=== PATIENT | female | born 1965 | race Caucasian/White ===

== ENCOUNTER 2018-10-21 08:47 | Day surgery (SDC) | payer OTHER ==
[2018-10-21] MEDS ORDERED: LR 1,000 ML IV ONE (08:59)
[2018-10-21] MEDS ORDERED: ceFAZolin 2 GM/DEXTROSE 100 ML IV ONE (08:59)
--- NOTE | 2018-10-21 10:22 | PDHPUP ---
History & Physical Update H&P update statement: This history and physical update is based on an assessment of the patient which was completed after admission or registration (within 24 hours), but prior to the surgery/procedure. H&P update: H&P reviewed & patient examined, no change in patient's condition since H&P completed
[2018-10-21] MEDS ORDERED: MIDAZOLAM 2 MG/2 ML VIAL IVP ONE (10:53)
[2018-10-21] MEDS ORDERED: PROPOFOL 200 MG/20 ML VIAL ONE (10:56)
[2018-10-21] MEDS ORDERED: fentaNYL 100 MCG/2 ML INJ ONE ×2 (10:56→12:37)
[2018-10-21] MEDS ORDERED: DEXAMETHASONE 4 MG/ML VIAL ONE (10:58)
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
[2018-10-21] MEDS ORDERED: PHENYLEPHRINE HCL 100 MCG/ML SYR ONE (11:26)
[2018-10-21] MEDS ORDERED: ePHEDrine SULFATE 25 MG/5 ML SYR ONE (11:27)
[2018-10-21] MEDS ORDERED: oxyCODONE IR 5 MG TAB PO PRN (12:00)
[2018-10-21] MEDS ORDERED: NALOXONE HCL 0.4 MG/ML INJ IVP PRN (12:00)
[2018-10-21] MEDS ORDERED: PROMETHAZINE HCL 25 MG/ML INJ IVP PRN (12:00)
[2018-10-21] MEDS ORDERED: MEPERIDINE 25 MG/0.5 ML AMP IVP PRN (12:00)
[2018-10-21] MEDS ORDERED: HYDROmorphONE/DILAUDID 2 MG/ML INJ IVP PRN (12:00)
[2018-10-21] MEDS ORDERED: ONDANSETRON 4 MG/2 ML VIAL IVP PRN (12:00)
[2018-10-21] MEDS ORDERED: LR 500 ML IV PRN (12:00)
[2018-10-21] MEDS ORDERED: ALBUTEROL 3 ML DEYVIAL IH PRN (12:00)
[2018-10-21] MEDS ORDERED: METOCLOPRAMIDE 10 MG/2 ML VIAL IVP PRN (12:00)
[2018-10-21] MEDS ORDERED: ACETAMINOPHEN 500 MG TAB PO PRN (12:00)
[2018-10-21] MEDS ORDERED: DIAZEPAM 5 MG/ML 1 ML SYR IVP PRN (12:00)
[2018-10-21] MEDS ORDERED: ONDANSETRON 4 MG/2 ML VIAL ONE (12:01)
[2018-10-21] MEDS ORDERED: BUPIVACAINE 0.5% 30 ML SDV ONE (12:04)
[2018-10-21] MEDS: fentaNYL 100 MCG/2 ML INJ IVP PRN ×2 (12:40→12:59)
--- NOTE | 2018-10-21 12:45 | POSTOPPROG ---
Post Op Note Date of Operation: 10/21/18 Surgeon: Jess Ladd Machine Bobbin Winder: nenita Anesthesiologist: gloria Anesthesia: GET(General Endotracheal) Pre-op Diagnosis: sacral decub, stage IV pressure ulce greater trochanter Post-op Diagnosis: same Indication: 53 yo paraplegia, lost weight now with pressure ulcers Procedure: debride skin soft tissue bone and muscle Findings: see dictated op note for measurements Inf/Abcess present in the surg proc area at time of surgery?: Yes Depth: Deep Incisional (Fascial) EBL: Minimal Specimen(s): culture
--- NOTE | 2018-10-21 12:59 | GOP ---
[f rep st] OPERATIVE REPORT DATE OF OPERATION: 10/21/2018 SURGEON: Jess Ladd MD DIAMOND DRILLER HELPER: Angelika Mendoza, LORI ANESTHESIA: General. ANESTHESIOLOGIST: Dr. Adriana Mccauley PREOPERATIVE DIAGNOSIS: Unstageable pressure ulcer sacrum, and stage IV decubitus ulcer on her great er trochanter. POSTOPERATIVE DIAGNOSIS: Stage III pressure ulcer sacrum, stage IV pressure ulcer right greater troc hanter. PROCEDURE PERFORMED: Debridement skin, soft tissue, muscle, fascia. FINDINGS: The wound on her sacrum measured 2 x 1 x 1 cm. The wound on her right greater trochanter measures 6.5 x 8.5 x 2.5, and undermined 3 cm at the 9 o'clock position and 3 cm at the 3 o'clock pos ition. SPECIMENS: Fluid and tissue from right greater trochanter for culture. ESTIMATED BLOOD LOSS: 10 cc. INDICATIONS: The patient is a paraplegic who has developed a pressure wounds. I first met her as sh israel transferred care to our wound care facility and she had foul smelling necrotic material bursting fr om her wound over her trochanter. She also had an unstageable pressure ulcer on her sacrum. I attem pted debridement in the office, but this was not possible. DESCRIPTION OF PROCEDURE: Patient was brought into the operating room, placed supine on the table, a nd general anesthesia was administered. I had to excise the leathery devitalized tissue over the sac rum. I excised this, then used Misonix to debride down to healthy subcutaneous fat. It measured 2 x 1 x 1 cm. On the right greater trochanter, I again had to perform a combination of debridement with electrocautery, as well as with Misonix. This wound, there was copious amounts of foul smelling mat erial and necrotic material. I debrided all of the devitalized tissue and could see the fascial plan e just over the bone. I had to debride necrotic muscle as well. Hemostasis was achieved in the wounds. Local anesthetic was injected. Dressings applied. She was p laced back in the supine position, awakened, transferred to PACU in stable condition. I believe she will benefit from a wound VAC and may need a complex plastic's closure. /[id number]/MODL
--- NOTE | 2018-10-21 13:00 | PDIAF ---
- Diagnosis Diagnosis: stage 3 sacral decub, stage IV R greater trochanter Code Status: Full Code - Medication Management Discharge Medications: electronically signed and located in the Home Medication List. - Orders Services needed: Home Care, Registered Nurse Home Care Face to Face: I certify that this patient was under my care and that I had the required [id number] encounter meeting the encounter requirements on the discharge day. My findings support the fact that the patient is homebound as defined in Home Care Face to Face Continued: CMS Chapter 7 Medicare Benefits Manual 30.1.1 , The condition of the patient is such that there exists a normal inability to leave home and consequently, leaving home would require a considerable and taxing effort. Diet Recommendation: no restrictions on diet Wound Care Instructions: I faxed home care orders. Mark carmona and briana. We will place vac on Wed 10:30 Additional Instructions: Off load Will send orders to home care for dressing changes I have ordered a wound vac F/U wound clinic - Follow Up Care Current Providers and Referrals: [facility] [Clinic] - NONE *PRIMARY CARE P,. [Primary Care Provider] - 10/26/18 10:30 am
[2018-10-21] MEDS ORDERED: oxyCODONE IR 5 MG TAB ONE (13:07)
--- NOTE | 2018-10-21 13:31 | POSTANESTH ---
Post Anesthetic Evaluation Cardiovascular Status: Normal, Stable Respiratory Status: Normal, Stable Level of Consciousness/Mental Status: Can Participate in Eval Pain Control: Adequate, Prn Tx Ordered Nausea/Vomiting Control: Adequate, Prn Tx Ordered Complications Possibly Related to Anesthesia: None Noted
[2018-10-21 14:53] VITALS: BP 107/56
== END 2018-10-21 14:45 | disposition home health service (06) ==
LOC: FSGY 08:47
PROVIDERS: ATTEND Surgery
DX: L89.153 Pressure ulcer of sacral region, stage 3 (principal); L89.214 Pressure ulcer of right hip, stage 4; G82.22 Paraplegia, incomplete; T14.90XS Injury, unspecified, sequela; N31.9 Neuromuscular dysfunction of bladder, unspecified; N39.498 Other specified urinary incontinence
CPT/HCPCS: J0690; J1100; J2250; J2370; J2405; J2704; J3010

== ENCOUNTER 2018-11-11 05:25 | Inpatient (IN) | payer OTHER ==
[2018-11-11] MEDS ORDERED: ONDANSETRON 4 MG/2 ML VIAL IVP ONE (05:32)
[2018-11-11] MEDS ORDERED: NS 1,000 ML IV ONE (05:32)
[2018-11-11] MEDS ORDERED: HYDROmorphONE/DILAUDID 2 MG/ML INJ IVP ONE ×3 (05:32→09:16)
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
[2018-11-11 06:04] LABS: PLATELET COUNT 687 10^3/uL (150-400)
[2018-11-11 06:24] LABS: INR 0.97 (0.83-1.16); PROTIME(PATIENT) 12.5 SEC (12.0-15.0)
[2018-11-11] MEDS ORDERED: ONDANSETRON DISINTEGRATING 4 MG TAB PO PRN (08:27)
[2018-11-11] MEDS ORDERED: ONDANSETRON 4 MG/2 ML VIAL IVP PRN (08:27)
[2018-11-11] MEDS ORDERED: HYDROmorphONE/DILAUDID 1 MG/ML INJ ONE ×2 (09:03→09:15)
[2018-11-11] MEDS: ACETAMINOPHEN 325 MG TAB PO PRN ×2 (10:38→22:18)
[2018-11-11] MEDS: oxyCODONE IR 5 MG TAB PO PRN ×2 (12:07→18:11)
[2018-11-11] MEDS: HYDROmorphONE/DILAUDID 1 MG/ML INJ IVP PRN ×4 (12:50→20:40)
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
[2018-11-11] MEDS: GABAPENTIN 400 MG CAP PO SCH ×2 (15:34→22:18)
[2018-11-11] MEDS: KETOROLAC 30 MG/1 ML SDV IVP PRN (15:34)
[2018-11-11] MEDS: OXYBUTYNIN CHLORIDE 5 MG TAB PO SCH ×2 (15:34→22:21)
--- NOTE | 2018-11-11 16:08 | PDMN ---
Medical Necessity Medical necessity: Pt meets IP criteria per & [facility]ound [facility]; est los >2 mn for eval/tx of multiple pressure wounds (stage 3 sacral ulcer, stage 4 great trochanter ulcer & new L hip wound) w/increased pain & recent debridement w/wound vac placement, as well as dysuria & protein caloric malnutrition; urinalysis pending; admit for further monitoring, Surgery/Dietary consults & pain management; hx T12 paraplegic, neurogenic bladder; per H&P & order 11/11/18
[2018-11-11] MEDS: HYDROmorphONE/DILAUDID 1 MG/ML INJ IVP SCH (16:14)
[2018-11-11] MEDS ORDERED: LORazepam 2 MG/ML INJ IVP ONE (16:30)
--- NOTE | 2018-11-11 16:30 | SOAPPROG ---
SOAP Progress Note Assessment/Plan: Assessment/Plan: 53yo F with stg IV pressure ulcer R greater trochanter, stage IV pressure ulcer sacrum, new unstageable pressure ulcer L greater trochanter, all present on admission Continue wound vac therapy - MWF Offload pressure Wound with >90% healthy granulation tissue - does not require surgical debridement Pain - neuropathic and significant anticipatory anxiety Will continue to follow Would benefit from SNF after admission- pt has refused this in the past Will consult a full dictation note. Seen with Dr. Ladd. Objective: Vital Signs Temp Pulse Resp BP Pulse Ox 36.4 C 83 16 112/78 94 11/11/18 10:19 11/11/18 10:19 11/11/18 10:19 11/11/18 10:19 11/11/18 10:19 PT 12.5 SEC (12.0-15.0) 11/11/18 05:50 INR 0.97 (0.83-1.16) 11/11/18 05:50 ICD10 Worksheet Patient Problems: Problems Problem Status Onset Failure to thrive in adult Acute Generalized weakness Acute Acute renal failure Acute Altered mental status Acute Elevated troponin Acute Intractable vomiting with nausea Acute Nausea Acute Pyelonephritis Acute Urinary tract infection Acute
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
--- NOTE | 2018-11-11 18:16 | WOCRNPDOC ---
LISETCRAnuj Advanced Assessment Note - Skin Integrity Problem, Advanced Assess Sacrum Dressing Type: Mepilex Border Exudate Amount: None Integumentary Issue Intervention: Dressing Changed Pam Wound Tissue: Erythema (circumferential), Painful/Tender Pam Wound Swelling: Mild Wound Bed Constitution: Granulation Tissue (80%), Undermining (2-4 oclock 3cm, 6 -12 oclock 0.5cm), Adhered Slough (20%) Wound Edges: Not Attached Site Measurement - Head-to-Toe Length X Width X Depth (cm): 3x2x0.6 Pressure Injury Stage: Stage 4 Pressure Injury Present on Admit: Yes Skin Integrity Problem Comment: Pressure injury debrided in OR last week. Staging per Dr. Ladd is a stage 4. Thin layer of adhered slough present. Patient lying on left side for wound measuring. There is a seperate full thickness tiny wound along the edge of the pressure injury at 3 oclock. It is about 0.5 cm from the lip of the established larger wound. It measures 1x0.5x0.2. Cleaned wounds with ns and gauze. Packed large wound lightly with mesalt packing and covered with mepilex border sacral dressing to autolyitically debride the wound. Wound care will follow all wounds. Kyle DUENAS in room for dressing change. Left Greater Trochanter Dressing Type: Mepilex Border Dressing Description: Clean/Dry, Intact Exudate Amount: None Integumentary Issue Intervention: Dressing Changed, Dressing Initialed & Dated Wound Bed Constitution: Mixed Loose & Adhered Slough/Eschar (100%) Site Measurement - Head-to-Toe Length X Width X Depth (cm): 2.2x2x0.1 Pressure Injury Stage: Unstageable Pressure Injury Present on Admit: Yes Skin Integrity Problem Comment: Wound that is dried and has pockets of intact skin in between areas of necrosis. Cleaned with ns and gauze. Medihoney gel to wound bed and covered with mepilex border 4x4. Wound care will follow. Right Greater Trochanter Dressing Type: Wound Vac Dressing Description: Clean/Dry, Intact Exudate Amount: Scant Exudate Characteristic(s): Serosanguinous Integumentary Issue Intervention: Dressing Changed Pam Wound Tissue: Painful/Tender Wound Bed Color: Black, Red, White Wound Bed Constitution: Granulation Tissue (80%), Undermining (11-2 oclock 3.2 cm ), Bone (quarter sized area exposed in superior wound bed), Muscle, Mixed Loose & Adhered Slough/Eschar (10%) Wound Edges: Epithelizing, Not Attached, Epibole, Well Defined Site Measurement - Head-to-Toe Length X Width X Depth (cm): 5.5x8x1.9 Pressure Injury Stage: Stage 4 Pressure Injury Present on Admit: Yes Skin Integrity Problem Comment: Vac dressing removed by Dr. Ladd. Patient with a significant amount of pain and anxiety during vac change. Most of the pain was during manipulation of the tissue in the undermining that is over the exposed bone. Ativan 0.5 mg along with 0.4 mg IV dilaudid administered. Will add 4% liquid topcial lidocaine for next vac change. Patient positioned herself prone for procedure. Flushed wound with ns and gauze. Skin prep and drape applied pam wound and to left lower abdomen for bridge placement. 3 pieces of black foam to wound bed after covering the exposed bone with adaptic touch. Black foam bridge created and set to -125 mm Hg continous suction with no leaks. Kyle DUENAS in room and assisted with care. Next vac change on Wednesday. Discussed wound healing trajectory and plan of care with patient. All questions answered. Left Lateral Thigh Dressing Type: Mepilex Border Integumentary Issue Intervention: Visualized Under Dressing Pam Wound Tissue: Blanching, Erythema Site Measurement - Head-to-Toe Length X Width X Depth (cm): 3.2x0.5x0 Skin Integrity Problem Comment: Intact blanching erythema. No open areas. No stagable wound at this time.
[2018-11-11] MEDS: LORazepam 2 MG/ML INJ IVP PRN (20:40)
[2018-11-11] MEDS: ZOLPIDEM TARTRATE 5 MG TAB PO SCH (22:19)
[2018-11-12] MEDS: KETOROLAC 30 MG/1 ML SDV IVP PRN ×2 (05:13→18:04)
[2018-11-12] MEDS: oxyCODONE IR 5 MG TAB PO PRN ×2 (08:18→16:09)
[2018-11-12] MEDS: MULTIVITAMINS 1 EACH TAB PO SCH (08:18)
[2018-11-12] MEDS: GABAPENTIN 400 MG CAP PO SCH ×3 (08:18→22:04)
[2018-11-12] MEDS: ATENOLOL 25 MG TAB PO SCH (08:18)
[2018-11-12] MEDS: OXYBUTYNIN CHLORIDE 5 MG TAB PO SCH ×3 (08:19→22:04)
[2018-11-12] MEDS: HYDROmorphONE/DILAUDID 1 MG/ML INJ IVP SCH ×2 (08:31→16:08)
--- NOTE | 2018-11-12 09:04 | HOSPPROG ---
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 First encounter, chart reviewed. * Multiple pressure ulcers with increased pain -Recent debridement by Dr. Barron, October 2018 -wound vac in place * Acute on chronic pain - resume home gabapentin, oxycodone, provide p.r.n. medications - Cymbalta *Dysuria -ua shows no infectious etiology *Depression *Neurogenic bladder -yu * Neuropathic pain -previous provider offered to increase gabapentin, but she declined-said it causes her diarrhea * Protein caloric malnutrition -dietary to see -BMI of 15.9 -weight loss of 30-40 pounds since April -she told me she has been unable to eat, doesn't have teeth, was to get implants and this did not happen -albumin 3 * Mild leukocytosis *dvt prophylaxis: poncho mcclain, initiate LMWH Subjective: Summer is c/o worsening pain from wounds. Objective: Vital Signs Temp Pulse Resp BP Pulse Ox 36.8 C 81 16 144/69 H 94 11/12/18 08:00 11/12/18 08:00 11/12/18 08:00 11/12/18 08:00 11/12/18 08:00 11/11/18 11/12/18 11/13/18 05:59 05:59 05:59 Intake Total 350 Output Total 650 Balance -300 PT 12.5 SEC (12.0-15.0) 11/11/18 05:50 INR 0.97 (0.83-1.16) 11/11/18 05:50 - Physical Exam Constitutional: chronically ill appearing, uncomfortable, cachectic Eyes: PERRL Ears, Nose, Mouth, Throat: hearing normal Cardiovascular: regular rate and rhythym Respiratory: no respiratory distress Gastrointestinal: normoactive bowel sounds Musculoskeletal: generalized weakness Neurologic: AAOx3 Psychiatric: interacting appropriately ICD10 Worksheet Patient Problems: Problems Problem Status Onset Failure to thrive in adult Acute Generalized weakness Acute Acute renal failure Acute Altered mental status Acute Elevated troponin Acute Intractable vomiting with nausea Acute Nausea Acute Pyelonephritis Acute Urinary tract infection Acute
--- NOTE | 2018-11-12 09:38 | SOAPPROG ---
SOAP Progress Note Assessment/Plan: Assessment: 53-year-old female with history of T12 paraplegia who presented with worsening of known stage IV pressure ulcer to the right greater trochanter, stage IV pressure ulcer to the sacrum, as well as a new unstageable pressure ulcer to the left greater trochanter. She recently lost a significant amount of weight and her wheelchair no longer fits properly. S: Patient appears much more comfortable today, in significantly less pain than when seen yesterday. O: General: Pleasant, well-nourished and well-groomed in NAD - however, significantly different than when I met her as an outpatient (at that time, very put together with a lot of energy) Did not perform physical exam today. Plan: Wound with healthy granulation tissue not needing debridement at this time. Pain is better controlled than yesterday, continue with Ativan p.r.n. For anxiety. Discussed outpatient rehab options with patient, in particular options specifically for wound healing including [facility] care. Patient seems agreeable to this plan and understands that it is important for her long- term healing. She is very independent baseline, and ultimately our goal is to get her back to independence. 1. Continue orders per wound care - discussed plan of care as a team yesterday 2. Offload pressure 3. Continue regular dressing changes with wound care. 4. Discharge planning for [facility] - discussed with social work 5. Consider nutrition consult for wound healing. Will follow periodically - don't hesitate to call with new issues 11/12/18 09:37 11/12/18 09:39 11/12/18 11:15 Objective: Vital Signs Temp Pulse Resp BP Pulse Ox 36.8 C 81 16 144/69 H 94 11/12/18 08:00 11/12/18 08:00 11/12/18 08:00 11/12/18 08:00 11/12/18 08:00 11/11/18 11/12/18 11/13/18 05:59 05:59 05:59 Intake Total 350 Output Total 650 Balance -300 PT 12.5 SEC (12.0-15.0) 11/11/18 05:50 INR 0.97 (0.83-1.16) 11/11/18 05:50 ICD10 Worksheet Patient Problems: Problems Problem Status Onset Failure to thrive in adult Acute Generalized weakness Acute Acute renal failure Acute Altered mental status Acute Elevated troponin Acute Intractable vomiting with nausea Acute Nausea Acute Pyelonephritis Acute Urinary tract infection Acute
[2018-11-12] MEDS: HYDROmorphONE/DILAUDID 1 MG/ML INJ IVP PRN ×3 (12:23→20:35)
[2018-11-12] MEDS: LORazepam 2 MG/ML INJ IVP PRN ×2 (12:24→20:35)
[2018-11-12] MEDS: DULoxetine 30 MG CAP PO SCH (12:50)
--- NOTE | 2018-11-12 15:12 | ASMTCMCOM ---
CM Note CM Note Notes: Referral sent to [facility] via [employer]. Dr Ladd requested [facility] specifically for the wound care closure pt will need. Discussed with pt and she is in agreement. She has Medicare and also has 100% service related VA benefits. Received call back from Lauren at [facility]. She asked if there are any pictures of the wounds - they would like some. TUNDE emailed Ro Wolfe in wound care and asked her to take some pictures (if they are able to) on Wednesday when they change the wound vac. Also, per Lauren, typically they do not do the wound closure on active smokers (pts need to be 6 weeks smoke free). Lauren is going to discuss pt with her clinical team and will let us know. PASRR in chart in the event a SNF is needed. It will trigger but should be a quick turnaround. CM will continue to follow. D/C plan: [facility] Date Signed: 11/12/2018 03:11 PM Electronically Signed By:YUNG Real
[2018-11-12] MEDS: ACETAMINOPHEN 325 MG TAB PO PRN (16:18)
[2018-11-12] MEDS ORDERED: NS 250 ML IV ONE (17:00)
[2018-11-12] MEDS: ZOLPIDEM TARTRATE 5 MG TAB PO SCH (22:04)
[2018-11-13] MEDS: oxyCODONE IR 5 MG TAB PO PRN ×3 (00:11→15:44)
[2018-11-13] MEDS: HYDROmorphONE/DILAUDID 1 MG/ML INJ IVP PRN ×5 (02:28→21:17)
[2018-11-13] MEDS: KETOROLAC 30 MG/1 ML SDV IVP PRN ×2 (03:54→15:44)
[2018-11-13] MEDS: LORazepam 2 MG/ML INJ IVP PRN ×3 (03:55→20:37)
[2018-11-13] MEDS: DULoxetine 30 MG CAP PO SCH (08:17)
[2018-11-13] MEDS: ATENOLOL 25 MG TAB PO SCH ×2 (08:17→08:19)
[2018-11-13] MEDS: GABAPENTIN 400 MG CAP PO SCH ×3 (08:17→22:10)
[2018-11-13] MEDS: MULTIVITAMINS 1 EACH TAB PO SCH (08:18)
[2018-11-13] MEDS: OXYBUTYNIN CHLORIDE 5 MG TAB PO SCH ×3 (08:18→22:10)
--- NOTE | 2018-11-13 14:56 | HOSPPROG ---
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 * Multiple pressure ulcers with increased pain -Recent debridement by Dr. Barron, October 2018 -wound vac in place * Acute on chronic pain - resume home gabapentin, oxycodone, provide p.r.n. medications - Cymbalta *Dysuria -ua shows no infectious etiology *Depression -stable *Neurogenic bladder -yu * Neuropathic pain -previous provider offered to increase gabapentin, but she declined-said it causes her diarrhea * Protein caloric malnutrition -dietary -BMI of 15.9 -weight loss of 30-40 pounds since April -she told me she has been unable to eat, doesn't have teeth, was to get implants and this did not happen -albumin 3 * Mild leukocytosis *dvt prophylaxis: poncho mcclain, LMWH *plan: patient needs automatic glove turner and former care and treatment of her wounds, CM looking at placement to [facility]. Subjective: Summer is watching tv on her computer and says pain is fine while not moving. Objective: Vital Signs Temp Pulse Resp BP Pulse Ox 36.8 C 68 18 128/66 H 95 11/13/18 11:28 11/13/18 11:28 11/13/18 11:28 11/13/18 11:28 11/13/18 11:28 Laboratory Results 11/12/18 12:05 11/12/18 11/13/18 11/14/18 05:59 05:59 05:59 Intake Total 350 1550 Output Total 650 1950 Balance -300 -400 PT 12.5 SEC (12.0-15.0) 11/11/18 05:50 INR 0.97 (0.83-1.16) 11/11/18 05:50 - Physical Exam Constitutional: chronically ill appearing, cachectic Eyes: PERRL Ears, Nose, Mouth, Throat: hearing normal Respiratory: no respiratory distress Musculoskeletal: generalized weakness Neurologic: AAOx3 Psychiatric: interacting appropriately ICD10 Worksheet Patient Problems: Problems Problem Status Onset Failure to thrive in adult Acute Generalized weakness Acute Acute renal failure Acute Altered mental status Acute Elevated troponin Acute Intractable vomiting with nausea Acute Nausea Acute Pyelonephritis Acute Urinary tract infection Acute
[2018-11-13] MEDS: ENOXAPARIN 40 MG/0.4 ML SYR SC SCH (15:43)
[2018-11-13] MEDS: SENNOSIDES/DOCUSATE SODIUM TAB PO PRN (16:59)
[2018-11-13] MEDS: ACETAMINOPHEN 325 MG TAB PO PRN (20:37)
[2018-11-13] MEDS: ZOLPIDEM TARTRATE 5 MG TAB PO SCH (22:10)
[2018-11-14] MEDS: oxyCODONE IR 5 MG TAB PO PRN ×3 (02:54→18:38)
[2018-11-14] MEDS: KETOROLAC 30 MG/1 ML SDV IVP PRN ×3 (02:54→18:38)
[2018-11-14] MEDS: HYDROmorphONE/DILAUDID 1 MG/ML INJ IVP PRN ×4 (04:05→20:18)
[2018-11-14] MEDS: ACETAMINOPHEN 325 MG TAB PO PRN (08:14)
[2018-11-14] MEDS: GABAPENTIN 400 MG CAP PO SCH ×3 (08:14→21:54)
[2018-11-14] MEDS: DULoxetine 30 MG CAP PO SCH (08:14)
[2018-11-14] MEDS: OXYBUTYNIN CHLORIDE 5 MG TAB PO SCH ×3 (08:15→21:54)
[2018-11-14] MEDS: ATENOLOL 25 MG TAB PO SCH (08:15)
[2018-11-14] MEDS: MULTIVITAMINS 1 EACH TAB PO SCH (08:16)
[2018-11-14] MEDS: ENOXAPARIN 40 MG/0.4 ML SYR SC SCH (08:18)
[2018-11-14] MEDS ORDERED: HYDROmorphONE/DILAUDID 1 MG/ML INJ IVP ONE (08:40)
[2018-11-14] MEDS ORDERED: LIDOCAINE HCL 4% TOPICAL SOLN 50ML TP ONE (09:09)
[2018-11-14] MEDS: HYDROmorphONE/DILAUDID 2 MG TAB PO PRN ×2 (09:49→13:58)
[2018-11-14] MEDS: LORazepam 2 MG/ML INJ IVP PRN ×2 (10:04→16:30)
--- NOTE | 2018-11-14 11:30 | WOCRNPDOC ---
ERICH Advanced Assessment Note - Skin Integrity Problem, Advanced Assess Sacrum Dressing Type: Mepilex Border, Mesalt Dressing Description: Intact, Shadowed Exudate Amount: Minimal Exudate Color: Yellow, Brown Exudate Characteristic(s): Cloudy, Serosanguinous Integumentary Issue Intervention: Dressing Changed Pam Wound Tissue: Erythema (minimally circumferentially) Wound Bed Color: Marty, Yellow, White Wound Bed Constitution: Red/Marty - Non Granular Tissue (50%), Tunneling (1-2 oclock (on left side) 2 cm), Undermining (7-12 oclock (on left side) 0.5 cm), Bone (4 oclock within tunnel), Fascia Wound Edges: Not Attached Site Odor: Very Strong, Foul Site Measurement - Head-to-Toe Length X Width X Depth (cm): 3x1.5x0.8 Pressure Injury Stage: Stage 4 Pressure Injury Present on Admit: Yes Skin Integrity Problem Comment: Dressing removed to reveal foul smelling wound. Wound cleaned with ns and gauze. Assessment revealed part of the tissue at the base of the wound lifting up. This opened a new area of tunneling at 4 oclock. There also is now a dime sized amount of exposed sacrum at the wound bed and extensive fascia exposed. Discussed findings and plan with patient. Angelika BROWN aware of findings. Packed with Mesalt and covered with Mepilex Border Sacral dressing. Ro CASTELLON and student in room for care. Will change wound care plan to address odor. Will initiate Dakins quarter strength wet to dry for its antimicrobial properties. Wound care will follow. Right Greater Trochanter Dressing Type: Adaptic Touch, Black Vac Foam (x3), Wound Vac Dressing Description: Intact Exudate Color: Yellow, Red, Brown Exudate Characteristic(s): Cloudy, Serosanguinous Integumentary Issue Intervention: Dressing Changed Pam Wound Tissue: Painful/Tender Wound Bed Color: Marty, Yellow, White Wound Bed Constitution: Red/Marty - Non Granular Tissue (50%), Undermining (11-3 oclock 3.2 cm), Bone (20%), Muscle, Adhered Slough (20%), Fascia (10%) Wound Edges: Not Attached Site Odor: Very Strong, Foul Site Measurement - Head-to-Toe Length X Width X Depth (cm): 5x7.2x1.4 Pressure Injury Stage: Stage 4 Pressure Injury Present on Admit: Yes Skin Integrity Problem Comment: Patient premedicated with po and IV dilaudid, ativan and topical lidocaine for wound vac change. Per patient discomfort was minimal and patient tolerated vac change much better than last time. Vac dressing removed as well as piece of Adaptic touch that was covering bone. Wound cleaned with ns and gauze. Skin prep and drape pam wound and across hip for bridge. One piece white and one piece of black placed. Vac bridged to patient belly. Ro CASTELLON in room for care. Wound care will follow. Next vac change due Wed.
--- NOTE | 2018-11-14 13:25 | HOSPPROG ---
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 First encounter, chart reviewed. * Multiple pressure ulcers with increased pain -Recent debridement by Dr. Barron, October 2018 -wound vac in place, change today * Acute on chronic pain - resume home gabapentin, oxycodone, provide p.r.n. medications - Cymbalta -add PRN dilaudid *Dysuria -ua shows no infectious etiology *Depression -stable *Neurogenic bladder -yu * Neuropathic pain -previous provider offered to increase gabapentin, but she declined-said it causes her diarrhea * Protein caloric malnutrition -dietary -BMI of 15.9 -weight loss of 30-40 pounds since April -she told me she has been unable to eat, doesn't have teeth, was to get implants and this did not happen -albumin 3 * Mild leukocytosis *dvt prophylaxis: poncho mcclain, LMWH *plan: patient needs half-way care and treatment of her wounds, CM looking at placement to [facility]. D/W CM Subjective: Having pain today. Tearful at thought of having wound vac changed. No other issues. Objective: Vital Signs Temp Pulse Resp BP Pulse Ox 36.8 C 62 16 97/53 L 95 11/14/18 12:00 11/14/18 12:00 11/14/18 12:00 11/14/18 12:00 11/14/18 12:00 Laboratory Results 11/12/18 12:05 11/13/18 11/14/18 11/15/18 05:59 05:59 05:59 Intake Total 1550 1770 Output Total 1950 1350 Balance -400 420 PT 12.5 SEC (12.0-15.0) 11/11/18 05:50 INR 0.97 (0.83-1.16) 11/11/18 05:50 - Physical Exam Constitutional: chronically ill appearing, uncomfortable, No obese Eyes: PERRL, anicteric sclera, EOMI Ears, Nose, Mouth, Throat: moist mucous membranes, hearing normal, ears appear normal Cardiovascular: regular rate and rhythym, No JVD, No edema Respiratory: no respiratory distress, no rales or rhonchi, reduced air movement Gastrointestinal: normoactive bowel sounds, No tenderness, No ascites Skin: warm, erythema, pressure ulcer Musculoskeletal: muscular tenderness, abnormal gait, generalized weakness Neurologic: AAOx3, weakness Psychiatric: not anxious, not encephalopathic, thought process linear ICD10 Worksheet Patient Problems: Problems Problem Status Onset Pyelonephritis Acute Nausea Acute Urinary tract infection Acute Intractable vomiting with nausea Acute Generalized weakness Acute Failure to thrive in adult Acute Altered mental status Acute Acute renal failure Acute Elevated troponin Acute
--- NOTE | 2018-11-14 16:08 | ASMTCMCOM ---
CM Note CM Note Notes: Spoke with Ofelia Adam from [facility] who states Dr. Rashid will not close any wounds on patients who are current smokers. Patient will have to be nicotine free for [address] Rashid will close the wound. Ofelia says they can stabilize the patient but then would send her home for 6 weeks to stop smoking before taking her back. They do not want to use up the patient's Medicare days. Spoke also with Ro Wolfe who in fact has sent pictures of patient's wounds to [facility] today. Ofelia states patient should have some medical support like Wellbutrin or Chantix since patient cannot use nicotine patches or have nicotine in their system. CM will follow. Date Signed: 11/14/2018 03:25 PM Electronically Signed By:Andree Marin LCSW
[2018-11-14] MEDS: ZOLPIDEM TARTRATE 5 MG TAB PO SCH (21:54)
[2018-11-14] MEDS: SODIUM HYPOCHLORITE (DAKINS 1/4 STR) 473 ML BTL TP SCH (21:55)
[2018-11-15] MEDS: HYDROmorphONE/DILAUDID 2 MG TAB PO PRN ×5 (00:47→19:09)
[2018-11-15] MEDS: KETOROLAC 30 MG/1 ML SDV IVP PRN ×4 (01:09→20:56)
[2018-11-15] MEDS: HYDROmorphONE/DILAUDID 1 MG/ML INJ IVP PRN ×4 (06:21→20:56)
[2018-11-15] MEDS: SENNOSIDES/DOCUSATE SODIUM TAB PO PRN (07:21)
[2018-11-15] MEDS: oxyCODONE IR 5 MG TAB PO PRN ×2 (09:08→17:27)
[2018-11-15] MEDS: DULoxetine 30 MG CAP PO SCH (09:08)
[2018-11-15] MEDS: ACETAMINOPHEN 325 MG TAB PO PRN ×3 (09:08→17:28)
[2018-11-15] MEDS: MULTIVITAMINS 1 EACH TAB PO SCH (09:09)
[2018-11-15] MEDS: GABAPENTIN 400 MG CAP PO SCH ×3 (09:09→21:51)
[2018-11-15] MEDS: OXYBUTYNIN CHLORIDE 5 MG TAB PO SCH ×3 (09:09→21:52)
[2018-11-15] MEDS: ENOXAPARIN 40 MG/0.4 ML SYR SC SCH (09:36)
[2018-11-15] MEDS: ATENOLOL 25 MG TAB PO SCH (09:36)
--- NOTE | 2018-11-15 10:05 | ASMTCMCOM ---
CM Note CM Note Notes: Spoke with patient who states she definitely wants to quit smoking. She is in agreement with going to SNF rehab and states this will help her through smoking cessation in addition to preventing deconditioning. Referrals will be sent though patient is uncertain which facility she wants yet. We will see who has beds. Patient spoke with Willow Chandler, Hospitalist and patient will start a small dose of Wellbutrin to help with nicotine withdrawal and depression. CM contacting patient's VA contacts to have VA benefits cover her medical care. CM will follow. Date Signed: 11/15/2018 10:04 AM Electronically Signed By:Andree Marin LCSW
[2018-11-15] MEDS: LORazepam 2 MG/ML INJ IVP PRN ×2 (11:22→19:08)
--- NOTE | 2018-11-15 13:16 | HOSPPROG ---
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 * Multiple pressure ulcers with increased pain -Recent debridement by Dr. Barron, October 2018 -wound vac in place -needs closure in the future * Acute on chronic pain - resume home gabapentin, oxycodone, provide p.r.n. medications - Cymbalta -add PRN dilaudid *Dysuria -ua shows no infectious etiology *Depression -stable *Neurogenic bladder -yu * Neuropathic pain -previous provider offered to increase gabapentin, but she declined-said it causes her diarrhea * Protein caloric malnutrition -dietary -BMI of 15.9 -weight loss of 30-40 pounds since April -she told me she has been unable to eat, doesn't have teeth, was to get implants and this did not happen -albumin 3 * Mild leukocytosis *dvt prophylaxis: poncho mcclain, LMWH *plan: patient needs extermination inspector care and treatment of her wounds, CM looking at placement Will need to go to a SNF first after 6 weeks of tobacco free then she can transfer to LTAC for closure of wound Start wellbutrin to help with nicotine use D/W CM D/W Dr Ladd Subjective: Up in bed. Still having some pain. No other issues. Objective: Vital Signs Temp Pulse Resp BP Pulse Ox 36.7 C 76 16 87/56 L 94 11/15/18 12:00 11/15/18 12:00 11/15/18 12:00 11/15/18 12:00 11/15/18 12:00 Laboratory Results 11/12/18 12:05 11/14/18 11/15/18 11/16/18 05:59 05:59 05:59 Intake Total 1770 850 Output Total 1350 1350 Balance 420 -500 PT 12.5 SEC (12.0-15.0) 11/11/18 05:50 INR 0.97 (0.83-1.16) 11/11/18 05:50 - Physical Exam Constitutional: appears nourished, not in pain, chronically ill appearing Eyes: PERRL, anicteric sclera, EOMI Ears, Nose, Mouth, Throat: moist mucous membranes, hearing normal, ears appear normal Cardiovascular: regular rate and rhythym, No JVD, No edema Respiratory: no respiratory distress, no rales or rhonchi, clear to auscultation Gastrointestinal: normoactive bowel sounds, No tenderness, No ascites Skin: warm, pressure ulcer, other (wound vac) Musculoskeletal: no joint effusions, muscular tenderness, generalized weakness Neurologic: AAOx3 Psychiatric: interacting appropriately, not anxious, not encephalopathic ICD10 Worksheet Patient Problems: Problems Problem Status Onset Pyelonephritis Acute Nausea Acute Urinary tract infection Acute Intractable vomiting with nausea Acute Generalized weakness Acute Failure to thrive in adult Acute Altered mental status Acute Acute renal failure Acute Elevated troponin Acute
[2018-11-15] MEDS: SODIUM HYPOCHLORITE (DAKINS 1/4 STR) 473 ML BTL TP SCH ×2 (15:00→21:51)
[2018-11-15] MEDS: buPROPion 75 MG TAB PO SCH ×2 (15:20→21:52)
[2018-11-15] MEDS: ZOLPIDEM TARTRATE 5 MG TAB PO SCH (21:52)
[2018-11-16] MEDS: KETOROLAC 30 MG/1 ML SDV IVP PRN ×2 (03:44→10:03)
[2018-11-16] MEDS: HYDROmorphONE/DILAUDID 2 MG TAB PO PRN ×3 (03:47→16:58)
[2018-11-16] MEDS: oxyCODONE IR 5 MG TAB PO PRN ×3 (07:19→20:28)
[2018-11-16] MEDS: HYDROmorphONE/DILAUDID 1 MG/ML INJ IVP PRN ×4 (08:54→22:30)
[2018-11-16] MEDS: LORazepam 2 MG/ML INJ IVP PRN ×2 (09:02→17:45)
[2018-11-16] MEDS: buPROPion 75 MG TAB PO SCH ×3 (09:04→20:28)
[2018-11-16] MEDS: OXYBUTYNIN CHLORIDE 5 MG TAB PO SCH ×3 (09:04→20:28)
[2018-11-16] MEDS: GABAPENTIN 400 MG CAP PO SCH ×3 (09:04→20:28)
[2018-11-16] MEDS: MULTIVITAMINS 1 EACH TAB PO SCH (09:04)
[2018-11-16] MEDS: DULoxetine 30 MG CAP PO SCH (09:04)
[2018-11-16] MEDS: ENOXAPARIN 40 MG/0.4 ML SYR SC SCH (09:05)
[2018-11-16] MEDS: ATENOLOL 25 MG TAB PO SCH (09:06)
[2018-11-16] MEDS: SODIUM HYPOCHLORITE (DAKINS 1/4 STR) 473 ML BTL TP SCH ×2 (09:20→21:20)
[2018-11-16] MEDS: LIDOCAINE HCL 4% TOPICAL SOLN 50ML TP PRN (09:51)
[2018-11-16] MEDS: ACETAMINOPHEN 325 MG TAB PO PRN (10:07)
--- NOTE | 2018-11-16 12:24 | HOSPPROG ---
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 * Multiple pressure ulcers with increased pain -Recent debridement by Dr. Barron, October 2018 -wound vac in place -needs closure in the future * Acute on chronic pain - resume home gabapentin, oxycodone, provide p.r.n. medications - Cymbalta -add PRN dilaudid *Dysuria -ua shows no infectious etiology *Depression -stable *Neurogenic bladder -yu * Neuropathic pain -previous provider offered to increase gabapentin, but she declined-said it causes her diarrhea * Protein caloric malnutrition -dietary -BMI of 15.9 -weight loss of 30-40 pounds since April -she told me she has been unable to eat, doesn't have teeth, was to get implants and this did not happen -albumin 3 * Mild leukocytosis *dvt prophylaxis: poncho mcclain, LMWH *plan: patient needs terminal system operator care and treatment of her wounds, CM looking at placement Will need to go to a SNF first then after 6 weeks of tobacco free then she can transfer to LTAC for closure of wound Started wellbutrin to help with nicotine use D/W CM Subjective: Anxious about DC. Still having some pain. Objective: Vital Signs Temp Pulse Resp BP Pulse Ox 36.9 C 72 16 129/70 H 97 11/16/18 08:00 11/16/18 08:00 11/16/18 08:00 11/16/18 08:00 11/16/18 08:00 Laboratory Results 11/12/18 12:05 11/15/18 11/16/18 11/17/18 05:59 05:59 05:59 Intake Total 850 Output Total 1350 1100 Balance -500 -1100 PT 12.5 SEC (12.0-15.0) 11/11/18 05:50 INR 0.97 (0.83-1.16) 11/11/18 05:50 - Physical Exam Constitutional: chronically ill appearing, uncomfortable, No obese Eyes: PERRL, anicteric sclera, EOMI Ears, Nose, Mouth, Throat: moist mucous membranes, hearing normal, ears appear normal Cardiovascular: No JVD, No bradycardia, No edema Respiratory: no respiratory distress, no rales or rhonchi, reduced air movement Gastrointestinal: No tenderness, No ascites Skin: warm, normal color, No mottled Musculoskeletal: no joint effusions, generalized weakness Neurologic: AAOx3 Psychiatric: not encephalopathic, thought process linear, anxious ICD10 Worksheet Patient Problems: Problems Problem Status Onset Pyelonephritis Acute Nausea Acute Urinary tract infection Acute Intractable vomiting with nausea Acute Generalized weakness Acute Failure to thrive in adult Acute Altered mental status Acute Acute renal failure Acute Elevated troponin Acute
[2018-11-16] MEDS: SENNOSIDES/DOCUSATE SODIUM TAB PO SCH ×2 (12:50→20:28)
--- NOTE | 2018-11-16 12:54 | WOCRNPDOC ---
ERICH Advanced Assessment Note - Skin Integrity Problem, Advanced Assess Right Greater Trochanter Dressing Type: Black Vac Foam, White Vac Foam, Wound Vac Dressing Description: Intact Exudate Amount: Minimal Exudate Color: Yellow, Brown Exudate Characteristic(s): Cloudy, Serosanguinous Integumentary Issue Intervention: Dressing Changed Wound Bed Color: Purple, Red, Yellow, Calloway, White Wound Bed Constitution: Granulation Tissue (30%), Red/Agency - Non Granular Tissue (30%), Undermining (11-1 oclock 2.6 cm; 1-3 oclock 1.8 cm), Bone (20%), Adhered Slough (20%) Wound Edges: Not Attached Site Odor: Strong, Foul (improved from last dressing change) Site Measurement - Head-to-Toe Length X Width X Depth (cm): 6x7.2x1.3 Pressure Injury Stage: Stage 4 Pressure Injury Present on Admit: Yes Skin Integrity Problem Comment: Patient premedicated with 0.4 mg IV Dilaudid, IV Ativan and topical Lidocaine. Wound cleaned with ns and gauze. Dr Ladd in room for wound assessment. Skin prep and draped shelby wound and across belly for bridge. One piece small white foam and two pieces of medium [place] black foam placed. Vac bridged to patient belly. Suction -125 mm Hg with no leaks noted. Student in room for assist. Will follow. Next vac change due Wednesday. Sacrum Dressing Type: Mepilex Border, Packing Dressing Description: Intact, Shadowed Exudate Color: Yellow, Brown Exudate Characteristic(s): Cloudy, Serosanguinous Integumentary Issue Intervention: Dressing Changed Shelby Wound Tissue: Erythema (circumferentially 0.5 cm) Wound Bed Constitution: Smooth Tissue (30%), Red/Agency - Non Granular Tissue (40% ), Tunneling (4 oclock 2cm; 1-3 oclock 2 cm), Undermining (7-12 oclock 0.5 cm), Bone (4 oclock within tunnel), Mixed Loose & Adhered Slough/Eschar (30%), Fascia Wound Edges: Not Attached Site Odor: Strong, Foul Site Measurement - Head-to-Toe Length X Width X Depth (cm): 3x2x1 Pressure Injury Stage: Stage 4 Pressure Injury Present on Admit: Yes Skin Integrity Problem Comment: Wound cleaned with ns and gauze. Packed wound and covered with Mepilex Border Sactal dressing. Wound care will continue to follow. Left Greater Trochanter Dressing Type: Allevyn Life Dressing Description: Clean/Dry, Intact Exudate Color: Yellow, Brown Integumentary Issue Intervention: Visualized Under Dressing Shelby Wound Tissue: Erythema (up to 1cm circumferentially) Wound Bed Color: Brown, Agency, Yellow Wound Bed Constitution: Granulation Tissue (10%), Adhered Slough (90%) Wound Edges: Attached Site Odor: None Site Measurement - Head-to-Toe Length X Width X Depth (cm): 2x1x0.1 Pressure Injury Stage: Unstageable Pressure Injury Present on Admit: Yes Skin Integrity Problem Comment: Wound devolving. Erythema markedly increased and necrosis unchanged. Cleaned with ns and gauze. Educated patient on importance of off loading and rotating the off loading with the other wounds. Patient expressed understanding. YULISSA Alvarado and student in room.
--- NOTE | 2018-11-16 16:04 | ASMTCMCOM ---
CM Note CM Note Notes: Met with pt, she has chosen [facility]. CM called Kelly there and left a message on patient's choice. DC Plan:[facility] Date Signed: 11/16/2018 04:02 PM Electronically Signed By:Shanelle Bains RN
--- NOTE | 2018-11-16 16:20 | SOAPPROG ---
SOAP Progress Note Assessment/Plan: Assessment: 53-year-old female with history of T12 paraplegia who presented with worsening of known stage IV pressure ulcer to the right greater trochanter, stage IV pressure ulcer to the sacrum, as well as a new unstageable pressure ulcer to the left greater trochanter. She recently lost a significant amount of weight and her wheelchair no longer fits properly. Recommend SNF then LTAC - [place] [facility] will not close wounds unless nicotine free (including patches x 6 weeks) Continue Vac to Right Continue dressings to sacrum and left hip per wound care Will see weekly while inpatient and q 2 weeks while outpatient S: Patient appears much more comfortable today, in significantly less pain than when seen yesterday. O: General: Pleasant, well-nourished and well-groomed in NAD - Wound on R hip is improved with minimal odor and no necrotic tissue 11/12/18 09:37 11/12/18 09:39 11/12/18 11:15 11/16/18 16:19 11/16/18 16:24 Objective: Vital Signs Temp Pulse Resp BP Pulse Ox 37.0 C 62 16 135/67 H 97 11/16/18 15:55 11/16/18 15:55 11/16/18 15:55 11/16/18 15:55 11/16/18 15:55 Laboratory Results 11/12/18 12:05 11/15/18 11/16/18 11/17/18 05:59 05:59 05:59 Intake Total 850 Output Total 1350 1100 Balance -500 -1100 PT 12.5 SEC (12.0-15.0) 11/11/18 05:50 INR 0.97 (0.83-1.16) 11/11/18 05:50 ICD10 Worksheet Patient Problems: Problems Problem Status Onset Failure to thrive in adult Acute Generalized weakness Acute Acute renal failure Acute Altered mental status Acute Elevated troponin Acute Intractable vomiting with nausea Acute Nausea Acute Pyelonephritis Acute Urinary tract infection Acute
[2018-11-16] MEDS ORDERED: NS BOLUS 500 ML (Wide open) IV ONE (20:30)
[2018-11-16] MEDS: ZOLPIDEM TARTRATE 5 MG TAB PO SCH (22:48)
[2018-11-17] MEDS: HYDROmorphONE/DILAUDID 2 MG TAB PO PRN ×2 (04:49→10:13)
[2018-11-17] MEDS: oxyCODONE IR 5 MG TAB PO PRN ×2 (07:45→12:09)
[2018-11-17] MEDS: ENOXAPARIN 40 MG/0.4 ML SYR SC SCH (08:13)
[2018-11-17] MEDS: ATENOLOL 25 MG TAB PO SCH (08:13)
[2018-11-17] MEDS: buPROPion 75 MG TAB PO SCH (08:24)
[2018-11-17] MEDS: GABAPENTIN 400 MG CAP PO SCH (08:24)
[2018-11-17] MEDS: DULoxetine 30 MG CAP PO SCH (08:24)
[2018-11-17] MEDS: MULTIVITAMINS 1 EACH TAB PO SCH (08:25)
[2018-11-17] MEDS: SENNOSIDES/DOCUSATE SODIUM TAB PO SCH (08:25)
[2018-11-17] MEDS: OXYBUTYNIN CHLORIDE 5 MG TAB PO SCH (08:25)
[2018-11-17] MEDS: ACETAMINOPHEN 325 MG TAB PO PRN (09:06)
[2018-11-17] MEDS: LORazepam 2 MG/ML INJ IVP PRN (09:14)
[2018-11-17] MEDS ORDERED: LORazepam 0.5 MG TAB PO PRN (09:21)
--- NOTE | 2018-11-17 09:28 | HOSPPROG ---
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 * Multiple pressure ulcers with increased pain -Recent debridement by Dr. Barron, October 2018 -wound vac in place -needs closure in the future * Acute on chronic pain - resume home gabapentin, oxycodone, provide p.r.n. medications - Cymbalta -add PRN dilaudid *Dysuria -ua shows no infectious etiology *Depression -stable *Neurogenic bladder -yu * Neuropathic pain -previous provider offered to increase gabapentin, but she declined-said it causes her diarrhea *Severe Protein caloric malnutrition -BMI of 15.9 -weight loss of 30-40 pounds since April -she told me she has been unable to eat, doesn't have teeth, was to get implants and this did not happen -albumin 3 * Mild leukocytosis *nicotine dependence -started on Wellbutrin -has to be 6 weeks tobacco free to to go LTAC for wound closure *dvt prophylaxis: poncho mcclain, LMWH *plan: SNF today Subjective: Summer likes the care she has been receiving in the hospital. no c/ o pain Objective: Vital Signs Temp Pulse Resp BP Pulse Ox 36.8 C 73 16 138/75 H 96 11/17/18 07:44 11/17/18 07:44 11/17/18 07:44 11/17/18 07:44 11/17/18 07:44 Laboratory Results 11/12/18 12:05 11/16/18 11/17/18 11/18/18 05:59 05:59 05:59 Intake Total 1240 Output Total 1100 950 Balance -1100 290 PT 12.5 SEC (12.0-15.0) 11/11/18 05:50 INR 0.97 (0.83-1.16) 11/11/18 05:50 - Physical Exam Constitutional: chronically ill appearing, cachectic Eyes: PERRL Ears, Nose, Mouth, Throat: hearing normal Respiratory: no respiratory distress Skin: warm Neurologic: AAOx3 Psychiatric: interacting appropriately ICD10 Worksheet Patient Problems: Problems Problem Status Onset Failure to thrive in adult Acute Generalized weakness Acute Acute renal failure Acute Altered mental status Acute Elevated troponin Acute Intractable vomiting with nausea Acute Nausea Acute Pyelonephritis Acute Urinary tract infection Acute
--- NOTE | 2018-11-17 11:02 | PDIAF ---
- Diagnosis Diagnosis: multiple pressure ulcers, T12 paraplegia Code Status: Full Code - Medication Management Discharge Medications: electronically signed and located in the Home Medication List. - Orders Services needed: Registered Nurse, Physical Therapy, Occupational Therapy Isolation Type: Contact Isolation Diet Recommendation: no restrictions on diet Diet Texture: Regular Texture Diet Additional Instructions: Wound care: Patient can only sit in wheelchair for up to one hour, up to 3 times per day maximum. Patient should be on an air fluidized mattress/support surface Pressure injury: You have a Stage 4 pressure injury on your sacrum and your right hip. The left hip has an unstagable pressure injury. Please offload these areas every hour to assist with healing. Wound vac to right hip Change MWF. Set at -125 mm Hg continuous. Cover exposed bone with either white foam or a contact layer like adaptic touch. Black foam to remainder of wound bed. Wound care orders for sacrum from 11/14/18 to 11/28/18. Change dressing on Sacrum BID and prn. 1. Flush wound well with wound cleanser or NS and dry with gauze. 2. Skin prep shelby wound 3. Soak 1/2 inch plain packing with strength Dakins solution (Sodium Hypoclorite solution that is supplied by pharmacy and must be scanned) and wring out well. Pack tunnels and canyons fully but not tightly. 4. Cover with a piece of dry gauze, and then cover with ABD and medipore tape. After 11/28/18 discontinue the /4 strength Dakins and perform wet to dry dressing change with ns instead. Change dressing on Sacrum BID and prn. 1. Flush wound well with wound cleanser or NS and dry with gauze. 2. Skin prep shelby wound 3. Soak 1/2 inch plain packing with NS and wring out well. Pack tunnels and canyons fully but not tightly. 4. Cover with a piece of dry gauze and then cover with ABD and medipore tape. Change dressing on left hip every other day and prn. 1. Clean with ns and gauze 2. Skin prep shelby wound 3. Honey gel to wound 4. Cover with mepilex border 4x4. (from wound care. Extras may be found on 3N. May use mepilex border sacral dressing if need be) Ro Torab CWON Wellbutrin was started here at [facility] for smoking cessation. Ativan and Dilaudid, Cymbalta are all new meds to help w pain - Follow Up Care Current Providers and Referrals: Patient,NotPresent [Unknown] - As per Instructions
[2018-11-17 11:18] VITALS: BP 107/66
--- NOTE | 2018-11-17 11:26 | ASMTLACE ---
CRISS Length of stay for Answers: 4-6 days current admission Acuity / Level of Answers: Yes Care: Did the patient have an inpatient admission? Comorbidities - select Answers: Opioid dependence all that apply / Chronic pain # of Emergency department Answers: 1-2 visits in the last 6 months Social determinants Answers: Mental health diagnosis (anxiety, depression, pers onality disorders, etc.) Score: 15 Date Signed: 11/17/2018 11:26 AM Electronically Signed By:Shanelle Bains RN
--- NOTE | 2018-11-17 11:28 | GDS ---
[f rep st] DISCHARGE SUMMARY DISCHARGE DIAGNOSES: 1. Multiple pressure ulcers with increased pain. 2. Acute on chronic pain. 3. Dysuria. 4. Depression. 5. Neurogenic bladder. 6. Neuropathic pain. 7. Severe protein calorie malnutrition. 8. Mild leukocytosis. 9. Nicotine dependence. CONSULTATION: Dr. Ladd. Briefly, Yasmeen Vergara is a 53-year-old woman who has a T12 paraplegia. She was noted to have a stag e IV pressure ulcer to the right greater trochanter, stage IV pressure ulcer to the sacrum and an uns tageable pressure ulcer to the left greater trochanter. [facility]. The plan is for her to go to [facility] in approximately 6 weeks. They are unable to treat her wounds and close them until she has not been on nicotine for 6 weeks. The p sara has been discussed with the patient and she is agreeable with this. HOSPITAL COURSE PER PROBLEM: 1. Multiple pressure ulcers with increased pain. She had debridement by Dr. Ladd in October 2018. S he has a wound VAC in place. She will need closure in the future. 2. Acute on chronic pain. Cymbalta added to her home regimen. 3. Dysuria. Urinalysis shows no infectious etiology. 4. Depression, stable. 5. Neurogenic bladder. This is secondary to her T12 paraplegia. 6. Neuropathic pain. It was offered to the patient to increase her gabapentin, but she said this ca using her diarrhea. 7. Severe protein calorie malnutrition. She has a BMI of 15.9. She has had a weight loss of 30-40 pounds since April. 8. Leukocytosis, stable. 9. Nicotine dependence, started on Wellbutrin. DISCHARGE CONDITION: Stable. Blood pressure is 138/75, respiratory rate is 16, pulse 73, temperatur e 36.8 Celsius, O2 sats on room air 96%. MEDICATIONS AT DISCHARGE: Please see the EMR. DISCHARGE INSTRUCTIONS: 1. The wound care has been written out in detail for the [facility]. In addition, to not smoke because she will get wound closures in approximately 6 weeks. She has been started on Well butrin to help her with this. 2. Cymbalta, Ativan, and Dilaudid are all new medications. They will need to be weaned off in the n ear future. Greater than 30 minutes discharging and coordinating the patient's care. /[id number]/MODL
--- NOTE | 2018-11-17 11:29 | ASMTDCNOTE ---
Case Management Discharge Discharge Order Complete? Answers: Yes Patient to Obtain Answers: Other Notes: [facility] Medications Transportation Arranged Answers: [facility] Stretcher Transport will Pick (Date 11/17/2018 12:15 PM & Time) Case Management Transport Answers: Yes Form Complete Faxed Final Orders Answers: Yes Agency/Facility Transfer Answers: Yes Report Printed & Faxed to Receiving Agency Family Notified Answers: No Discharge Comments Notes: D/w SENIOR DATA ARCHITECT, final orders faxed. Manda at [facility] notified, set up stretcher transportation. RN to call report Date Signed: 11/17/2018 11:28 AM Electronically Signed By:Shanelle Bains RN
[2018-11-17] MEDS: HYDROmorphONE/DILAUDID 1 MG/ML INJ IVP PRN (11:42)
[2018-11-17] MEDS: LIDOCAINE HCL 4% TOPICAL SOLN 50ML TP PRN (11:43)
[2018-11-17] MEDS: SODIUM HYPOCHLORITE (DAKINS 1/4 STR) 473 ML BTL TP SCH (11:47)
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
== END 2018-11-17 12:32 | DRG 592 ==
LOC: EDUNIT# → OBSVTOIN 08:28 → F3E 09:54
PROVIDERS: ADMIT Internal Medicine; ATTEND Family Medicine
DX: L89.154 Pressure ulcer of sacral region, stage 4 (principal); E43 Unspecified severe protein-calorie malnutrition; G82.20 Paraplegia, unspecified; Z68.1 Body mass index [BMI] 19.9 or less, adult; L89.214 Pressure ulcer of right hip, stage 4; G89.29 Other chronic pain; L89.220 Pressure ulcer of left hip, unstageable; E86.9 Volume depletion, unspecified; R30.0 Dysuria; F32.9 Major depressive disorder, single episode, unspecified; N31.9 Neuromuscular dysfunction of bladder, unspecified; F17.210 Nicotine dependence, cigarettes, uncomplicated; Z99.3 Dependence on wheelchair
CPT/HCPCS: 80305; 84484-ER; 96374; 97162-GP; 97166-GO; 97530-GP; G0480; J1170; J1650; J1885; J2060; J2405

== ENCOUNTER 2018-12-19 13:49 | Observation (INO) | payer OTHER ==
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
[2018-12-19] MEDS ORDERED: NS 500 ML IV ONE (14:29)
[2018-12-19 14:38] LABS: PLATELET COUNT 556 10^3/uL (150-400)
[2018-12-19 14:52] LABS: CREATINE KINASE 188 IU/L (0-156)
[2018-12-19] MEDS ORDERED: PROMETHAZINE HCL 25 MG/ML INJ ONE (15:00)
[2018-12-19] MEDS ORDERED: fentaNYL 100 MCG/2 ML INJ IVP ONE (16:14)
[2018-12-19] MEDS ORDERED: ONDANSETRON 4 MG/2 ML VIAL IVP ONE (16:14)
[2018-12-19] MEDS ORDERED: fentaNYL 100 MCG/2 ML INJ ONE (16:16)
[2018-12-19] MEDS ORDERED: ONDANSETRON DISINTEGRATING 4 MG TAB PO PRN (16:48)
[2018-12-19] MEDS ORDERED: ONDANSETRON 4 MG/2 ML VIAL IVP PRN ×2 (16:48→16:49)
[2018-12-19] MEDS ORDERED: ACETAMINOPHEN 325 MG TAB PO PRN (16:48)
[2018-12-19] MEDS ORDERED: GLYCOPYRROLATE 0.2 MG/1 ML VIAL IVP/IM PRN (16:49)
[2018-12-19 17:42] VITALS: BP 108/63
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
--- NOTE | 2018-12-19 21:13 | CPEKG ---
Test Reason : OPEN Blood Pressure : / mmHG Vent. Rate : 100 BPM Atrial Rate : 100 BPM P-R Int : 150 ms QRS Dur : 072 ms QT Int : 343 ms P-R-T Axes : 086 082 052 degrees QTc Int : 443 ms Sinus tachycardia Minimal ST depression, diffuse leads Confirmed by Glenn Alejo ([id number]) on 12/19/2018 9:10:56 PM Referred By: GLENN ALEJO Confirmed By:Glenn Alejo
[2018-12-19] MEDS: oxyCODONE IR 5 MG TAB PO PRN (21:22)
[2018-12-19] MEDS: GABAPENTIN 400 MG CAP PO SCH (21:22)
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
[2018-12-20] MEDS: oxyCODONE IR 5 MG TAB PO PRN (06:26)
[2018-12-20] MEDS: HYDROmorphONE/DILAUDID 2 MG TAB PO PRN ×2 (09:02→14:25)
[2018-12-20] MEDS: GABAPENTIN 400 MG CAP PO SCH (09:02)
[2018-12-20] MEDS: LORazepam 0.5 MG TAB PO PRN ×2 (09:03→13:49)
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
--- NOTE | 2018-12-20 10:47 | PDIAF ---
- Diagnosis Code Status: Do Not Resuscitate - Medication Management Discharge Medications: electronically signed and located in the Home Medication List. - Orders Services needed: Registered Nurse, Certified Vein Pumper Isolation Type: Contact Isolation Diet Recommendation: no restrictions on diet - Follow Up Care Current Providers and Referrals: NONE *PRIMARY CARE P,. [Primary Care Provider] - As per Instructions
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
== END 2018-12-20 14:40 | disposition hospice, home (50) ==
LOC: EDUNIT# → F3E 17:56
PROVIDERS: ADMIT Internal Medicine; ATTEND Internal Medicine
DX: G92 Toxic encephalopathy (principal); T40.601A Poisoning by unspecified narcotics, accidental (unintentional), initial encounter; F11.221 Opioid dependence with intoxication delirium; G89.29 Other chronic pain; L89.154 Pressure ulcer of sacral region, stage 4; Z68.1 Body mass index [BMI] 19.9 or less, adult; L89.214 Pressure ulcer of right hip, stage 4; L89.220 Pressure ulcer of left hip, unstageable; K21.9 Gastro-esophageal reflux disease without esophagitis; F32.9 Major depressive disorder, single episode, unspecified; N31.9 Neuromuscular dysfunction of bladder, unspecified; F17.210 Nicotine dependence, cigarettes, uncomplicated; G82.22 Paraplegia, incomplete; W34.00XS Accidental discharge from unspecified firearms or gun, sequela; Z99.3 Dependence on wheelchair; Z66 Do not resuscitate
CPT/HCPCS: 70450; 93005; 96361; 96374; 96375; 96376; 99285; G0378; J2270; J2405; J2550; J3010; 80305; G0480